=== PATIENT | female | born 1950 | race Caucasian/White ===

== ENCOUNTER 2017-11-05 06:06 | Inpatient (IN) | payer MEDICARE, SELFPAY ==
[2017-10-22 07:54] VITALS: BMI 23.3
[2017-11-05] VITALS (14 sets, daily range): BP systolic 84–120; BP diastolic 45–72; PULSE 55–83; RESP 13–18; TEMP 36.2–36.9; O2SAT 94–100; BMI 22.9
--- NOTE | 2017-11-05 | DI.RAD.S_ITS ---
PROCEDURE: XR SHOULDER RT 1V INDICATIONS: Post op total right shoulder TECHNIQUE: Single views of the shoulder were acquired. COMPARISON: None. FINDINGS: Expected postoperative alignment of right shoulder arthroplasty hardware. No fracture seen. Surgical drain noted. IMPRESSION: Expected postoperative appearance Dictated by: Dimitri Horowitz M.D. on 11/05/2017 at 10:23 Approved by: Dimitri Horowitz M.D. on 11/05/2017 at 10:25
[2017-11-05] MEDS: LACTATED RINGERS 1,000 ML 42 ML IV (07:00)
--- NOTE | 2017-11-05 07:40 | PM.PREOP ---
Pre-operative Note Interval Note Pre-op Check: Yes History & Physical Reviewed by Physician and Yes Exam Performed Changes: No
--- NOTE | 2017-11-05 07:47 | P.OP_ITS ---
Operative Date/Time/Diagnoses Date of procedure: 11/05/17 Time of procedure: 09:50 Pre-op diagnosis: Right shoulder osteoarthritis Post-op diagnosis: same Procedure & Clinicians Procedure: Right total shoulder replacement Same procedure as scheduled: Yes Indications: The patient has had progressively worsening right shoulder pain with radiographic changes consistent with arthritis. Non-operative management has failed and the patient has requested total shoulder replacement. The risks, benefits and alternatives to surgery were discussed with the patient prior to proceeding. Risks discussed included, but were not limited to, failure to relieve pain, stiffness, infection, nerve damage, deep venous thrombosis, pulmonary embolism, stroke, coma, heart attack, permanent paralysis and , as well as the potential need for eventual revision of the prosthetic. Surgeon: Leonidas Martin Interactive Web Developer: Christa Lanier Click Yes if Unassisted: No Anesthesia Type: General, Peripheral nerve block and Local Operative Notes Findings: Severe osteoarthritis of the right shoulder with multiple loose bodies. Closure Type: primary Specimen(s): none sent Implants & Drains: Implants used in this procedure manufactured by the [employer] and included an Altivate short stem total shoulder prosthesis with a 12 mm humeral stem, a 42 mm all polyethylene E plus glenoid, a 42 mm x 16 mm neutral humeral head and a neutral humeral neck. Applied: implant(s) Estimated Blood Loss (mL): 150 Blood products transfused: none Procedure in detail: The patient was seen in the pre-operative area, where the patient identified the right shoulder as the operative site and this was marked with my initials. The patient received pre-operative antibiotics, underwent an interscalene block, and was taken to the operating room and placed on the operative table in the supine position. After satisfactory anesthesia, a full ? time out? was performed. The patient was repositioned in the ?beach chair? position using a dedicated positioner. All pressure points were well padded, and the knees were slightly bent to prevent tension on the sciatic nerves. The right arm was prepared from the fingers to the base of the neck with ChloroPrep in the usual fashion and draped through sterile drapes. An approximately 15 cm incision was created, starting at the clavicle above the coracoid process and extended towards the deltoid insertion. The deltopectoral interval was used to access the shoulder. The cephalic vein was taken medially. A self retaining retractor was placed. The upper centimeter of the pectoralis major tendon was released. The ?three sisters? were identified and cauterized. The axillary nerve was palpated and protected throughout the case. The biceps was released from its groove and tenodesed over the top of the pectoralis major tendon. The subscapularis was released from the lesser tuberosity with a subscapularis peel and tagged for later repair. The shoulder was dislocated and a cutting guide was used for the proximal humeral osteotomy in 30 degrees of retroversion. A starter reamer was used followed by the cylindrical reamers. This continued in larger sizes in till cortical bite was achieved. Sequential broaching was then performed until a line to line fit with the reamer occurred. A proximal humeral protector was then placed. We then removed the self-retaining retractor and placed retractors to access the glenoid. The subscapularis was released with a ?360 degree release? with care being taken to protect the axillary nerve with the inferior portion of this procedure. The remnant of labrum and biceps stump were removed. The appropriate size reamer was chosen with the glenoid sizer, and the guide pin placed. The glenoid was appropriately reamed. The guide for the peripheral holes was used and the center hole enlarged. The trial glenoid was placed with good stability. We then cemented the final implant into place after irrigating the peg holes and drying them with thrombin-soaked Gelfoam. We returned our attention to the humerus, a trial humeral head was applied and a trial reduction performed. Stability was checked with 50% posterior translation, 45? external rotation at the side with the subscapularis in the repaired position and 70? of internal rotation in the ?scarecrow position?. This was felt to be satisfactory and the appropriate implants were opened. Five holes were drilled along the humeral osteotomy and #2 TiCron sutures placed for eventual subscapularis repair. The humeral prosthetic was impacted into the humerus. The humeral head was applied when the stem was still slightly proud and impacted to both seat the head and fully seat the stem. The joint was relocated one final time. The joint was irrigated and the subscapularis repaired to the previously placed sutures using Ronald-Julio sutures. The top of the subscapularis was closed to the leading edge of the supraspinatus with a figure of 8 #2 TiCron to close the rotator interval. A deep drain was placed and brought out supero-laterally. The deltopectoral interval was closed with interrupted 0 Vicryl. The subcutaneous layer was closed with 3-0 Vicryl, and the skin with a running 3-0 V-Lock suture and SteriStrips. An Aquacel Ag dressing was applied, the patient?s arm was placed in a sling, and the patient was taken to recovery having tolerated the procedure well. Complications: none Condition: stable Disposition: PACU Plan for aftercare: The patient will be maintained on a standard total shoulder replacement protocol with passive range of motion limited to 90 degrees forward flexion, 0 degrees external rotation at the side, 0 degrees abduction and internal rotation to the body. The patient will receive aspirin and sequential compression devices for DVT prophylaxis. The patient will be discharged home when safe for the home environment, likely tomorrow.
--- NOTE | 2017-11-05 08:06 | SUR.PREOP ---
Block start time 0750] . Monitoring initiated and maintained throughout procedure. Oxygen and medications given per anesthesiologist instructions. Patient remained stable throughout procedure, no adverse reactions noted. Block end time [0800]. pt taken directly into the or after completion of block. pt left pre op area in stable condition, vss.
[2017-11-05] MEDS: CEFAZOLIN 1 GM VIAL IV (08:20)
[2017-11-05] MEDS: TRANEXAMIC ACID 1,000 MG VIAL 1000 MG INJ ×2 (08:29→09:33)
--- NOTE | 2017-11-05 08:43 | SUR.OPER ---
Beach chair with Schlein shoulder positioner. Lower body on padded OR bed. Head in foam padded head cradle, secured with straps. Non-operative arm secured <90 degrees abduction. Pillow under knees. Gel pad under heels. Safety belt at thigh. Cloth tape over blanket over chest (on top of gown).
--- NOTE | 2017-11-05 08:51 | PM.PROC.1 ---
Procedures Date/Time Date of procedure: 11/05/17 Time of procedure: 08:00 General Procedure description: Ultrasound guided interscalene brachial plexus nerve block for post op pain control after right shoulder arthroplasty by Dr. Martin. Risk and benefits of procedure discussed with patient. ASA monitoring applied to patient. O2 given via nasal cannula. 1 mg Versed and 50 mcg fentanyl given for procedural sedation. Skin site was prepped with chlorhexidine and allowed to fully dry. Sterile gloves, mask, hat and probe cover were used to maintain sterility. 2% lidocaine and 30ga needle was used to make a small skin wheal at needle insertion site. Under ultrasound guidance, a 21ga 50mm Pajunk needle was directed into the interscalene groove (middle/anterior scalenes) near the brachial plexus. Patient reported no parasthesias. After negative aspiration, 20 mL 0.5% ropivicaine and 10mg dexamethasone were injected around brachial plexus. Patient tolerated procedure well.
[2017-11-05] MEDS: BUPIVACAINE 0.5% W/ EPI (PF) VIAL 30 ML INJ (09:02)
[2017-11-05] MEDS: THROMBIN (BOVINE) 5,000 UNIT VIAL 5000 UNIT TOP (09:09)
[2017-11-05] MEDS: fentaNYL 100 MCG/2 ML INJ 50 MCG IV (10:24)
[2017-11-05] MEDS: LACTATED RINGERS 1,000 ML 125 ML IV (11:27)
[2017-11-05] MEDS: HYDROMORPHONE 2 MG INJ IV (11:32)
[2017-11-05] MEDS: OXYCODONE IR 5 MG TABLET PO ×2 (11:43→16:36)
--- NOTE | 2017-11-05 12:48 | PC.NURSE ---
Addendum entered by Lupe Schroedre R.N. 11/05/17 14:46: MS/PAIN - up with phys therapy, denies dizziness or pain, ambul in room. Original Note: AM NOTE - arrived alert, states r shoulder, states pain lower at top r breast area, pain 5 on scale 0/10 and asking for pain medication, aquacell dsg cdi w/small spot, arrived with hemovac open to air, placement intact, added a clear dsg to secure, compressed with serosang in tubing, pt belongings were brought up from pacu after phone call and her cell phone and green purse was brought out from safe, given 0.2mg iv dilaudid and shortly after when shima cran juice, given 5mg oxycodoen that brought her pain down to 2/10, hr 55, bp 90/60, ra 96%.
--- NOTE | 2017-11-05 13:08 | PT.IPTN ---
Current Diagnoses Primary osteoarthritis, right shoulder (11/05/17) Surgery Performed Operation Date: 11/05/17 07:45 Actual Procedures p Total Shoulder Arthroplasty(Right) - Leonidas Martin MD Physical Therapy Treatment Note Subjective Physical Therapy Visit Type Type Administrative Note Notes Pt still a little loopy with some word slurring and slow speech at 1pm, will wait a little longer to initiate PT eval, will attempt again later in the afternoon.
[2017-11-05] MEDS: ACETAMINOPHEN 325 MG TABLET 975 MG PO ×2 (14:36→21:20)
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
[2017-11-05] MEDS: CEFAZOLIN 1 GM/50 ML FROZ.PIGGY IV (16:29)
[2017-11-05] MEDS: ASPIRIN EC 81 MG TABLET PO (21:20)
[2017-11-05] MEDS: DOCUSATE 100 MG CAPSULE PO (21:20)
[2017-11-05] MEDS: DORZOLAMIDE/TIMOLOL OPHTH 10 ML 1 DROPS EYE-BOTH (21:21)
[2017-11-05] MEDS: MAGNESIUM HYDROXIDE 30 ML UDC PO (21:21)
[2017-11-06] MEDS: CEFAZOLIN 1 GM/50 ML FROZ.PIGGY IV (01:01)
[2017-11-06] MEDS: OXYCODONE IR 5 MG TABLET PO ×2 (02:20→06:37)
[2017-11-06 04:20] VITALS: BP 99/58; PULSE 56; RESP 18; TEMP 36.7; O2SAT 97
[2017-11-06] MEDS: HYDROMORPHONE 1 MG INJ 0.2 MG IV (04:52)
--- NOTE | 2017-11-06 05:16 | PC.NURSE ---
NOC shift: Pt with sling in place, up to the bathroom with 1PA. Pt requested PRN oxycondone x1 and PRN IVP dilaudid x1 this shift. DRSG to shoulder is CDI, HV is patent and compressed. Brisk cap refill to RUE. Strong pulse in RUE.
[2017-11-06] MEDS: ACETAMINOPHEN 325 MG TABLET 975 MG PO (05:36)
[2017-11-06 07:16] LABS: Hematocrit 31.3 % (36-46); Hemoglobin 10.8 g/dL (12.0-16.0); Mean Corpuscular HGB Conc 34.4 % (30-36); Mean Corpuscular Hemoglobin 32.9 PG (26-34); Mean Corpuscular Volume 95.6 fL (80-100); Platelet Count 294 X10^3/uL (150-400); Red Blood Cell Count 3.27 X10^6/uL (4.0-5.2); Red Cell Distribution Width 13.3 % (11.6-14.8); White Blood Cell Count 12.9 X10^3/uL (4.5-11.0)
--- NOTE | 2017-11-06 07:47 | PM.DS.1 ---
History of Present Illness Date Patient Seen: 11/06/17 Time Patient Seen: 07:25 Chief complaint: total shoulder arthroplasty [id number] Narrative: History of present illness and physical examination is contained in the chart previously completed note. Please refer to that note for this information. Discharge Providers Date of admission: 11/05/17 06:06 Primary care physician: LEYDI Shearer Consults: 11/05/17 11:13 Consult to Discharge Planning Routine Comment: Consult to Physical Therapy Evaluate & Treat Comment: PROM 90 FF, 0 ER, 0 ABD, IR to body, pendulums Physician Instructions: Evaluate and Treat Consult to Respiratory Therapy Evaluate & Treat Comment: Physician Instructions: Evaluate and treat Discharge provider: Leonidas Martin MD Discharge Date: 11/06/17 Summary Discharge Diagnosis: 1. Right shoulder osteoarthritis 2. Mild post hemorrhagic anemia Hospital Course: Patient was admitted the hospital and taken directly to the operating room on November 05, 2017. She underwent a right total shoulder without complication. She was felt to be ready for discharge on postoperative day 1. Status at Discharge Cognitive/behavioral status at discharge: At baseline. Functional status at discharge: independent ambulation Overall status at discharge: patient is progressing back to baseline Time Spent with Patient Less than 30 minutes Exam Vital Signs (past 8 hours): - 11/06/17 04:20 Temperature 98.1 F Pulse Rate 56 L Respiratory Rate 18 Blood Pressure 99/58 L Pulse Oximetry 97 Oxygen Delivery Method Room Air Objective Labs Result Diagrams: 11/06/17 06:25 Labs: Laboratory Results - last 24 hr 11/06/17 06:25 WBC 12.9 H RBC 3.27 L Hgb 10.8 L Hct 31.3 L MCV 95.6 MCH 32.9 MCHC 34.4 RDW 13.3 Plt Count 294 Discharge Plan Discharge Plan Patient Disposition: Home Discharge Med Rec/Prescriptions Prescriptions: New aspirin 81 mg Tablet,Delayed Release (Dr/Ec) 81 mg PO BID 42 Days Qty: 84 RF: 0 oxycodone 5 mg Tablet 5 mg PO Q3HR PRN (Reason: Pain, Moderate (4-6)) Qty: 60 RF: 0 Continue latanoprost 0.005 % Drops 1 drp EYE-BOTH QAM RF: 0 acetaminophen [Tylenol Extra Strength] 500 mg Tablet 1,000 mg PO Q6H PRN (Reason: pain) RF: 0 alprazolam [Xanax] 0.25 mg Tablet 0.125 mg PO BID PRN (Reason: ptsd) RF: 0 balsalazide [Colazal] 750 mg Capsule 3 tab PO TID RF: 0 dorzolamide-timolol 22.3-6.8 mg/mL Drops 1 drp EYE-BOTH BEDTIME RF: 0 omeprazole 20 mg Tablet,Delayed Release (Dr/Ec) 20 mg PO DAILY PRN (Reason: gerd) RF: 0 Follow up/Referrals: Leonidas Martin MD [Physician] - 2 Weeks Provider Discharge Instructions Diet: Diet as Tolerated and Regular Cold/Heat Therapy: Apply ice to the surgical site for 15 min every hour as needed. Skin/Wound/Dressing Care Report to your healthcare provider any signs of infection, such as:: chills, fever, night sweats, increased pain and unusual drainage Dressing: Leave the surgical dressing intact until follow-up. You may shower with the dressing in place. If the central strip on the dressing gets wet with water or blood please call the office. Discharge Data Primary Care Provider: Mayra Andrade Attending Provider: Leonidas Martin Admit Date/Time: 11/05/17 06:06
[2017-11-06 08:40] VITALS: BP 104/60; PULSE 59; RESP 16; TEMP 36.6; O2SAT 95
[2017-11-06] MEDS: ASPIRIN EC 81 MG TABLET PO (09:17)
[2017-11-06] MEDS: LATANOPROST 0.005% OPHTH 2.5 ML 1 DROPS EYE-BOTH (09:17)
[2017-11-06] MEDS: POLYETHYLENE GLYCOL 3350 17 GM POWD.PACK PO (09:17)
[2017-11-06] MEDS: DOCUSATE 100 MG CAPSULE PO (09:17)
--- NOTE | 2017-11-06 09:24 | PC.NURSE ---
Addendum entered by Sara Ferrari R.N. 11/06/17 10:58: PIV removed, tolerated well. Patient has no further questions, is packed up, and dressed in personal clothes. Will be leaving with friend in personal vehicle. Original Note: AM shift Hemovac removed. Patient tolerated well. 25ml drainage measured. Nallely ordered OT and OT is in the room assisting pt. Patient saline locked.
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
== END 2017-11-06 11:17 | disposition home or self-care (01) | DRG 483 ==
PROVIDERS: Admitting Provider Orthopaedic Surgery; PCP Nurse Practitioner; Visit Provider Orthopaedic Surgery
PROC: 0RQJ0ZZ Repair Right Shoulder Joint, Open Approach (ICD-10-PCS; CPT 23472; principal; 2017-11-05 07:45)
DX: M19.011 Primary osteoarthritis, right shoulder (principal); G62.9 Polyneuropathy, unspecified; Z87.891 Personal history of nicotine dependence
CPT/HCPCS: 36415; 64450; 73020; 85027; 97110; 97116; 97161; 97165; 97530; 97535; C1776; J0690; J1100; J1170; J2250; J2405; J2704; J2795; J3010